=== PATIENT | male | born 1970 | race Caucasian/White ===

== ENCOUNTER 2018-09-24 14:40 | Emergency (ER) | payer OTHER ==
[2018-09-24 14:48] VITALS: BP 163/92; PULSE 98; RESP 20; TEMP 98; O2SAT 99
[2018-09-24] MEDS ORDERED: Silver Sulfadiazine 1% Cream (20 gm) TOP STA (14:50)
--- NOTE | 2018-09-24 15:10 | C.PDOC ---
History Of Present Illness 48 year old male with no significant past medical history presents to the emergency department for evaluation of a burn on his right anterior ankle/foot that occurred this afternoon at work. Patient states he was trying to place something in the oven when he spilled hot water on himself. Pt works as a cook. Placed aloe vera cream and burn spray on the injured area [employer]. Denies numbness, paresthesias, anguiano elsewhere, or any other associated symptoms. Time Seen by Provider: 09/24/18 14:50 Chief Complaint (Nursing): Burn History Per: Patient History/Exam Limitations: no limitations Injury Occurred (Timing): Hours Ago: Type Of Burn (Context): Hot Liquid Burn Descrption: 2nd: Ankle, Foot Smoke Inhalation: None Severity: Moderate Past Medical History Reviewed: Historical Data, Nursing Documentation, Vital Signs Vital Signs: Last Vital Signs Temp 98 F 09/24/18 14:46 Pulse 98 H 09/24/18 14:46 Resp 20 09/24/18 14:46 BP 163/92 H 09/24/18 14:46 Pulse Ox 99 09/24/18 14:46 - Medical History PMH: No Chronic Diseases Family History: States: No Known Family Hx - Social History Hx Alcohol Use: No Hx Substance Use: No Review Of Systems Except As Marked, All Systems Reviewed And Found Negative. Constitutional: Negative for: Fever, Chills Cardiovascular: Negative for: Chest Pain, Palpitations Respiratory: Negative for: Cough, Shortness of Breath Gastrointestinal: Negative for: Nausea, Vomiting, Abdominal Pain Musculoskeletal: Positive for: Foot Pain (right) Skin: Positive for: Other (burn right foot/ankle) Neurological: Negative for: Weakness, Numbness, Dizziness Physical Exam - Physical Exam Appears: Well, Non-toxic, No Acute Distress Skin: Normal Color, Warm, Dry, Other (2nd degree burn with blistering to right anterior ankle into dorsal foot) Head: Atraumatic, Normacephalic Eye(s): bilateral: Normal Inspection, PERRL, EOMI Nose: Normal Throat: Normal Neck: Normal Cardiovascular: Rhythm Regular Respiratory: Normal Breath Sounds Back: Normal Inspection Extremity: Normal ROM, Tenderness (over burn), Capillary Refill (<2sec), Other (2nd degree burn with blister on right anterior ankle into dorsal foot) Extremity: Bilateral: No Pedal Edema, Normal Color And Temperature, Normal ROM Pulses: Left Dorsalis Pedis: Normal, Right Dorsalis Pedis: Normal Neurological/Psych: Oriented x3, Normal Speech, Normal Cognition, Normal Motor, Normal Sensation Gait: Steady (without assistance) ED Course And Treatment O2 Sat by Pulse Oximetry: 99 Medical Decision Making Medical Decision Making: Initial Plan: * Wound cleaning * Silvadene * Wound dressing Burn cleaned and dressed by nursing. Pt given prescription for silvadene cream and instructed to followup with PMD within 2 days. Plan of care discussed with patient, and strict instructions given regarding prescriptions, importance of follow up, and signs to return to Emergency Department, to include worsening pain, signs of infection, fever, chills, or any other new/worsening symptoms. Patient verbalizes understanding of discussion. Patient A&Ox3, ambulating with steady gait, stable for discharge home. Disposition - Disposition Referrals: [facility] [Outside] Disposition: HOME/ ROUTINE Disposition Time: 15:00 Condition: IMPROVED Additional Instructions: Mantenga la quemadura limpia y cubierta Cambiar el vendaje gary vez al da despus de la ducha, aplicar Silvadene crema y volver a vestir con el aderezo limpio Seguimiento con el mdico de cabecera dentro de 2 contreras Volver a ER para nuevos/empeoramiento de los sntomas Prescriptions: Silver Sulfadiazine 1% 50 gm [Silvadene 1% 50 gm] 1 ea TOP DAILY #1 jar Instructions: Skin Anguiano Forms: Gen Discharge Inst Estonian, [employer] (Estonian), Work Excuse Print Language: SLOVENIAN - Clinical Impression Clinical Impression: Burn
[2018-09-24] MEDS ORDERED: Silver Sulfadiazine 1% Cream (20 gm) ONE (15:20)
== END 2018-09-24 15:29 | disposition home or self-care (01) ==
LOC: C.ER 14:40
DX: T25.211A Burn of second degree of right ankle, initial encounter (principal); T25.221A Burn of second degree of right foot, initial encounter; X11.8XXA Contact with other hot tap-water, initial encounter; Y93.G3 Activity, cooking and baking; Y92.89 Other specified places as the place of occurrence of the external cause; Y99.0 Civilian activity done for income or pay